=== PATIENT | male | born 1970 | race Caucasian/White ===

== ENCOUNTER 2022-10-08 14:11 | Emergency (ER) | payer BC, OTHER ==
[2022-10-08] MEDS ORDERED: predniSONE 10 MG Tab PO ONE (14:31)
[2022-10-08] MEDS ORDERED: methylPREDNISolone Sodium Succinate 40 MG/1 ML SDV IM ONE (14:35)
[2022-10-08] MEDS ORDERED: Loratadine 10 MG Tab PO ONE (14:36)
[2022-10-08] MEDS ORDERED: Famotidine 20 MG Tab PO ONE (14:37)
== END 2022-10-08 16:10 | disposition home or self-care (01) ==
LOC: JD.ED 14:11
DX: L27.0 Generalized skin eruption due to drugs and medicaments taken internally (principal); T46.1X5A Adverse effect of calcium-channel blockers, initial encounter; T46.2X5A Adverse effect of other antidysrhythmic drugs, initial encounter; T45.515A Adverse effect of anticoagulants, initial encounter; I48.91 Unspecified atrial fibrillation; Z79.899 Other long term (current) drug therapy
CPT/HCPCS: 93005; 96372; 99283; A9270; J2920; 93010